=== PATIENT | male | born 2000 | race Hispanic/Latino ===

== ENCOUNTER 2018-09-03 10:45 | Emergency (ER) | payer SELFPAY ==
--- NOTE | 2018-09-03 11:53 | ED.PDOC ---
History of Present Illness - General Chief Complaint: Skin/Abrasion/Tear Stated Complaint: draining cyst Time Seen by Provider: 09/03/18 11:52 Source: patient Exam Limitations: no limitations - History of Present Illness Initial Comments: [address] 18 y/o male stated that he noted painful draining cyst with purulent material at his coccygeal area and went to see his Md was started on Bactrim DS BID then called up his Md but was advised to come here to ER.Denies chronic medical problem,no fever chills,no constipation/diarrhea. Timing/Duration: other - see hpi Severity: moderate Location: torso Improving Factors: nothing Worsening Factors: nothing Associated Symptoms: other - see hpi Allergies/Adverse Reactions: Allergies Penicillins Allergy (Verified 09/03/18 11:17) Home Medications: Ambulatory Orders Clindamycin HCl 300 mg PO BID #14 cap 09/03/18 Tramadol HCl 50 mg PO Q4HR PRN #20 tab 09/03/18 Review of Systems - Review of Systems Neurological: States: see HPI All other Systems: Reviewed and Negative, No Change from Baseline Past Medical History (General) - Patient Medical History Hx Stroke: No Hx Diabetes: No Surgical History: no surgical history - Vaccination History Hx Influenza Vaccination: Yes - 2017 Immunizations Up to Date: Yes - Social History Hx Alcohol Use: No Hx Substance Use: No Hx Depression: No Feels Threatened In Home Enviroment: No Hx Physical Abuse: No Hx Emotional Abuse: No Family Medical History - Family History Mother Family History: No Known Physical Exam - Physical Exam General Appearance: Alert, Comfortable, No apparent distress Eyes, Ears, Nose, Throat Exam: normal ENT inspection Neck: non-tender, supple, normal inspection Cardiovascular/Chest: normal peripheral pulses, regular rate, rhythm, no murmur Respiratory: chest non-tender, lungs clear, normal breath sounds, no respiratory distress Gastrointestinal/Abdominal: normal bowel sounds, non tender, soft, no organomegaly, other - rectal exam-no induration felt anorectum Back Exam: normal inspection, no CVA tenderness Extremity: no pedal edema, no calf tenderness Neurologic: alert, oriented x 3 Skin Exam: warm/dry, normal color Skin Problem Location: other - coccyc Skin Character: drainage - draining sinus Lymphatic: no adenopathy Progress - Progress Progress: 09/03/18 12:38 Vital Signs - 8 hr 09/03/18 10:52 Temperature 98.6 F Pulse Rate [ 65 right brachial] Respiratory 20 Rate Blood Pressure 116/54 [left brachial] O2 Sat by Pulse 98 Oximetry Procedures - Incision and Drainage #1 Site: coccyx area Procedure and Prep: sterile drapes applied, sterile dressings applied, gauze wick placed, irrigated, pus drained - 7 Blade Size: 11 Procedure Comments: tolerated well Departure - Departure Clinical Impression: Pilonidal cyst with abscess Time of Disposition: 12:44 Disposition: Discharge to Home or Self Care Condition: Fair Departure Forms: ED Discharge - Pt. Copy, Patient Portal Self Enrollment Instructions: Pilonidal Cyst, Pilonidal Cyst (DC) Referrals: Aarti Chavez CHEMOTHERAPIST [Primary Care Provider] - 1-2 Weeks Prescriptions: Tramadol HCl 50 mg PO Q4HR PRN #20 tab PRN Reason: Pain Clindamycin HCl 300 mg PO BID #14 cap Home Medications: Ambulatory Orders Clindamycin HCl 300 mg PO BID #14 cap 09/03/18 Tramadol HCl 50 mg PO Q4HR PRN #20 tab 09/03/18 Additional Instructions: Removal of drain 06 Sep 2018 [facility];Need to make appointment with Dr. Modi- surgeon for further evaluation
[2018-09-03] MEDS ORDERED: LIDOCAINE 1% W/ EPINEPHRINE 20 ML VIAL INJ ONE (12:02)
[2018-09-03] MEDS ORDERED: IODOFORM 1/4 INCH 1 EA BTTL TOP ONE (12:06)
[2018-09-03] MEDS ORDERED: TETANUS,DIPHTHERIA,PERTUSSIS 1 EA SYG IM ONE (12:39)
[2018-09-03] MEDS ORDERED: HYDROcodone 10MG/APAP 325MG 1 EA TAB PO ONE (12:39)
[2018-09-03] MEDS ORDERED: CLINDAMYCIN HCL CAP 150 MG CAP PO ONE (12:39)
[2018-09-03 13:36] VITALS: BP 135/70; TEMP 98.5; O2SAT 97
== END 2018-09-03 13:36 | disposition home or self-care (01) ==
LOC: ER 10:45
DX: L05.01 Pilonidal cyst with abscess (principal); Z23 Encounter for immunization; Z88.0 Allergy status to penicillin